=== PATIENT | female | born 1945 | race Two or more races ===

== ENCOUNTER 2020-07-25 11:18 | Inpatient (IN) | payer OTHER ==
[~2020-07-25] VITALS: Ht 165.1 cm; Wt 115.7 kg
[2020-07-25] MEDS ORDERED: LEVOXYL75 MCG (11:52)
[2020-07-25] MEDS ORDERED: PROBIOTIC1 EAC2 (11:53)
[2020-07-25] MEDS ORDERED: COZAAR50 MG (11:53)
[2020-07-25] MEDS ORDERED: AMLODIPINE-OLM1 EAC2 (11:53)
[2020-07-25] MEDS ORDERED: CENTRUM SILVER1 EAC2 (11:54)
== END 2020-09-01 12:11 | disposition home or self-care (01) | DRG 378 ==
LOC: ER 11:18 → SEC-K 17:48 → MEDI 17:48 → MEDJ 17:48 → MEDI 19:08 → MEDJ 19:08
PROVIDERS: ADMIT Internal Medicine; ATTEND Internal Medicine
PROC: BW21ZZZ Computerized Tomography (CT Scan) of Abdomen and Pelvis (ICD-10-PCS; principal; 2020-07-25)
PROC: 3E0336Z Introduction of Nutritional Substance into Peripheral Vein, Percutaneous Approach (ICD-10-PCS; 2020-07-25)
PROC: 05HC33Z Insertion of Infusion Device into Left Basilic Vein, Percutaneous Approach (ICD-10-PCS; 2020-07-26)
PROC: 3E0F7GC Introduction of Other Therapeutic Substance into Respiratory Tract, Via Natural or Artificial Opening (ICD-10-PCS; 2020-07-27)
PROC: BW21Y0Z Computerized Tomography (CT Scan) of Abdomen and Pelvis using Other Contrast, Unenhanced and Enhanced (ICD-10-PCS; 2020-07-29)
PROC: 0W9F30Z Drainage of Abdominal Wall with Drainage Device, Percutaneous Approach (ICD-10-PCS; 2020-08-01)
PROC: 8E0ZXY6 Isolation (ICD-10-PCS; 2020-08-03)
PROC: BW21ZZZ Computerized Tomography (CT Scan) of Abdomen and Pelvis (ICD-10-PCS; 2020-08-06)
PROC: BW21ZZZ Computerized Tomography (CT Scan) of Abdomen and Pelvis (ICD-10-PCS; 2020-08-08)
PROC: BW21ZZZ Computerized Tomography (CT Scan) of Abdomen and Pelvis (ICD-10-PCS; 2020-08-16)
PROC: BW21Y0Z Computerized Tomography (CT Scan) of Abdomen and Pelvis using Other Contrast, Unenhanced and Enhanced (ICD-10-PCS; 2020-08-16)
PROC: BW21ZZZ Computerized Tomography (CT Scan) of Abdomen and Pelvis (ICD-10-PCS; 2020-08-19)
PROC: BW21Y0Z Computerized Tomography (CT Scan) of Abdomen and Pelvis using Other Contrast, Unenhanced and Enhanced (ICD-10-PCS; 2020-08-19)
PROC: 0W9F30Z Drainage of Abdominal Wall with Drainage Device, Percutaneous Approach (ICD-10-PCS; 2020-08-24)
PROC: BW21Y0Z Computerized Tomography (CT Scan) of Abdomen and Pelvis using Other Contrast, Unenhanced and Enhanced (ICD-10-PCS; 2020-08-30)
DX: K57.21 Diverticulitis of large intestine with perforation and abscess with bleeding (principal); B37.89 Other sites of candidiasis; Z20.828 Contact with and (suspected) exposure to other viral communicable diseases; D50.0 Iron deficiency anemia secondary to blood loss (chronic); D51.0 Vitamin B12 deficiency anemia due to intrinsic factor deficiency; B96.29 Other Escherichia coli [E. coli] as the cause of diseases classified elsewhere; B95.2 Enterococcus as the cause of diseases classified elsewhere; B96.7 Clostridium perfringens [C. perfringens] as the cause of diseases classified elsewhere; B96.89 Other specified bacterial agents as the cause of diseases classified elsewhere; B96.1 Klebsiella pneumoniae [K. pneumoniae] as the cause of diseases classified elsewhere; B96.6 Bacteroides fragilis [B. fragilis] as the cause of diseases classified elsewhere

== ENCOUNTER 2020-10-17 06:24 | Day surgery (SDC) | payer OTHER ==
[~2020-10-17 06:24] MED LIST: AMLODIPINE-OLM1 EAC2; CENTRUM SILVER1 EAC2; COZAAR50 MG; LEVOXYL75 MCG; PROBIOTIC1 EAC2
== END 2020-10-17 11:10 | disposition home or self-care (01) ==
LOC: AMB-ENDOS 06:24
PROVIDERS: ATTEND Surgery
DX: K57.20 Diverticulitis of large intestine with perforation and abscess without bleeding (principal); K62.4 Stenosis of anus and rectum; Z20.828 Contact with and (suspected) exposure to other viral communicable diseases

== ENCOUNTER → 2020-12-27 08:00 | Outpatient (CLI) | payer OTHER ==
[~2020-12-27] VITALS: Ht 165.1 cm; Wt 98.9 kg
[~2020-12-27 08:00] MED LIST changes: +LEVOTHYROXINE75 MCG PO; +TOPROL XL25 M1 PO; +VANCOMYCIN HCL1 GM PO
== END | disposition home or self-care (01) ==
LOC: LAB 08:00 → SURH 01-03 07:00 → EDSTATUS 01-03 08:45
PROVIDERS: ATTEND Surgery
DX: U07.1 COVID-19 (principal); K57.20 Diverticulitis of large intestine with perforation and abscess without bleeding; R10.32 Left lower quadrant pain; K43.2 Incisional hernia without obstruction or gangrene; I10 Essential (primary) hypertension

== ENCOUNTER 2021-01-02 18:25 | Inpatient (IN) | payer OTHER ==
[~2021-01-02] VITALS: Ht 160 cm; Wt 113.4 kg
[~2021-01-02 18:25] MED LIST changes: -LEVOTHYROXINE75 MCG PO; -TOPROL XL25 M1 PO; -VANCOMYCIN HCL1 GM PO
--- NOTE | 2021-01-02 19:14 | NUR ---
SE RECIBE PTE ALERTA Y ORIENTADA X3 ACOMPNADA POR PADRON HIJO EL CUAL REFIERE QUE LA PTE TRAE MUCHIS MEDICAMENTOS EN L MANANA DE [place] DESPUES QUE LE NOTIFICARON QUE TENIA COVID -19 ,ES PTE DEL DR.NICOLAS SARBJIT RICHARD HACER INTERVENIDA QUIRURGICAMENTE ,LA PRESION ALTERILA ESTA BAJA ,PTE CON DEPRECION.
--- NOTE | 2021-01-02 19:49 | NUR ---
SE ORIENTA A PTE SOBRE PROCESO DE MAGDY DE MUESTRAS, ADMINISTRACION DE MEDICAMENTOS Y ESTUDIO A REALIZAR CT DE [place]. PTE SE ENCUENTRA ALERTA Y ORIENTADA POR 3 AL MOMENTO CON S/V ESTABLES. SE OBSERVA UN POCO ANSIOSA POR NOTICIA DE RESULTADO DE COVID POSITIVO (MUESTRA REALIZADA POR KEMAL LUEGO DE DE ADMINISTRACION DE VACUNA HACE UN[place]ERA). SE ORIENTA A PTE SOBRE PROTOCOLOS DE UNIDAD, SE MANTIENE LA MISMA BAJO OBSERVACION.
[2021-01-18] MEDS ORDERED: LEVOTHYROXINE75 MCG PO (08:16)
[2021-01-18] MEDS ORDERED: TOPROL XL25 M1 PO (08:16)
[2021-01-18] MEDS ORDERED: VANCOMYCIN HCL1 GM PO (08:16)
== END 2021-01-18 09:42 | disposition home or self-care (01) | DRG 914 ==
LOC: ER 18:25 → MEDI 23:55 → ICU-2 23:55 → SEC-K 01-09 13:09 → MEDI 01-09 15:24
PROVIDERS: ADMIT Internal Medicine; ATTEND Internal Medicine
PROC: 4A033R1 Measurement of Arterial Saturation, Peripheral, Percutaneous Approach (ICD-10-PCS; 2021-01-02)
PROC: 02HV33Z Insertion of Infusion Device into Superior Vena Cava, Percutaneous Approach (ICD-10-PCS; principal; 2021-01-04)
PROC: 3E043KZ Introduction of Other Diagnostic Substance into Central Vein, Percutaneous Approach (ICD-10-PCS; 2021-01-04)
PROC: 4A12X4Z Monitoring of Cardiac Electrical Activity, External Approach (ICD-10-PCS; 2021-01-04)
PROC: 0W9F30Z Drainage of Abdominal Wall with Drainage Device, Percutaneous Approach (ICD-10-PCS; 2021-01-09)
DX: T14.91XA Suicide attempt, initial encounter (principal); N17.9 Acute kidney failure, unspecified; K57.20 Diverticulitis of large intestine with perforation and abscess without bleeding; I95.2 Hypotension due to drugs; F41.8 Other specified anxiety disorders; F32.9 Major depressive disorder, single episode, unspecified; E66.01 Morbid (severe) obesity due to excess calories; D50.0 Iron deficiency anemia secondary to blood loss (chronic); E03.9 Hypothyroidism, unspecified; T46.5X2A Poisoning by other antihypertensive drugs, intentional self-harm, initial encounter; Y92.098 Other place in other non-institutional residence as the place of occurrence of the external cause; Z20.822 Contact with and (suspected) exposure to COVID-19; B96.20 Unspecified Escherichia coli [E. coli] as the cause of diseases classified elsewhere; E87.6 Hypokalemia

== ENCOUNTER 2021-03-13 09:44 | Emergency (ER) | payer OTHER ==
[~2021-03-13] VITALS: Ht 165.1 cm; Wt 97.5 kg
[~2021-03-13 09:44] MED LIST changes: +LEVOTHYROXINE75 MCG PO; +TOPROL XL25 M1 PO; +VANCOMYCIN HCL1 GM PO
[2021-03-13] MEDS ORDERED: NORFLEX100MG PO (14:14)
[2021-03-13] MEDS ORDERED: DICLOFENAC SODI50 MG PO (14:14)
== END 2021-03-13 14:28 | disposition home or self-care (01) ==
LOC: ER 09:44
DX: M54.5 Low back pain (principal); R53.81 Other malaise

== ENCOUNTER 2021-04-07 17:07 | Inpatient (IN) | payer OTHER ==
[~2021-04-07] VITALS: Ht 165.1 cm; Wt 90.7 kg
[~2021-04-07 17:07] MED LIST changes: +DICLOFENAC SODI50 MG PO; +NORFLEX100MG PO
[2021-04-07] MEDS ORDERED: METRONIDAZOLE500 MG (17:31)
[2021-04-07] MEDS ORDERED: ABATINEX680 MG (17:32)
[2021-04-07] MEDS ORDERED: CIPRO500 MG (17:32)
== END 2021-05-04 15:34 | disposition home or self-care (01) | DRG 330 ==
LOC: ER 17:07 → SURG 21:26 → MEDJ 21:26 → SEC-K 23:17 → SURG 23:20 → MEDJ 04-11 00:09
PROVIDERS: Surgery; ADMIT Internal Medicine; ATTEND Internal Medicine
PROC: 4A12X4Z Monitoring of Cardiac Electrical Activity, External Approach (ICD-10-PCS; 2021-04-07)
PROC: 02HV33Z Insertion of Infusion Device into Superior Vena Cava, Percutaneous Approach (ICD-10-PCS; 2021-04-08)
PROC: 0W9F30Z Drainage of Abdominal Wall with Drainage Device, Percutaneous Approach (ICD-10-PCS; 2021-04-10)
PROC: B24BZZZ Ultrasonography of Heart with Aorta (ICD-10-PCS; 2021-04-11)
PROC: 8E0ZXY6 Isolation (ICD-10-PCS; 2021-04-12)
PROC: 0D1L4Z4 Bypass Transverse Colon to Cutaneous, Percutaneous Endoscopic Approach (ICD-10-PCS; principal; 2021-04-18 17:45)
PROC: 30233N1 Transfusion of Nonautologous Red Blood Cells into Peripheral Vein, Percutaneous Approach (ICD-10-PCS; 2021-04-20)
DX: K57.20 Diverticulitis of large intestine with perforation and abscess without bleeding (principal); L02.211 Cutaneous abscess of abdominal wall; N32.1 Vesicointestinal fistula; Z16.12 Extended spectrum beta lactamase (ESBL) resistance; N17.8 Other acute kidney failure; E66.01 Morbid (severe) obesity due to excess calories; Z20.822 Contact with and (suspected) exposure to COVID-19; F41.8 Other specified anxiety disorders; F32.9 Major depressive disorder, single episode, unspecified; D50.0 Iron deficiency anemia secondary to blood loss (chronic); B96.20 Unspecified Escherichia coli [E. coli] as the cause of diseases classified elsewhere

== ENCOUNTER 2021-05-06 05:54 | Emergency (ER) | payer OTHER ==
[~2021-05-06] VITALS: Ht 152.4 cm; Wt 90.7 kg
[~2021-05-06 05:54] MED LIST changes: +ABATINEX680 MG; +CIPRO500 MG; +METRONIDAZOLE500 MG
== END 2021-05-06 13:46 | disposition home or self-care (01) ==
LOC: ER 05:54
DX: J06.9 Acute upper respiratory infection, unspecified (principal); D64.89 Other specified anemias; R06.02 Shortness of breath; Z03.818 Encounter for observation for suspected exposure to other biological agents ruled out

== ENCOUNTER 2021-05-22 07:21 | Emergency (ER) | payer OTHER ==
[~2021-05-22] VITALS: Ht 165.1 cm; Wt 91.6 kg
== END 2021-05-22 12:48 | disposition home or self-care (01) ==
LOC: ER 07:21
DX: K94.19 Other complications of enterostomy (principal); K91.89 Other postprocedural complications and disorders of digestive system

== ENCOUNTER → 2021-06-02 | Emergency (ER) | payer OTHER | END | disposition home or self-care (01) | LOC: ER 09:13 | DX: T81.89XA Other complications of procedures, not elsewhere classified, initial encounter (principal) ==

== ENCOUNTER 2021-09-22 08:55 | Outpatient (CLI) | payer OTHER | END 2021-09-22 09:05 | disposition home or self-care (01) | LOC: TOM 08:55 | PROVIDERS: ATTEND Surgery | DX: Q61.02 Congenital multiple renal cysts (principal); K57.90 Diverticulosis of intestine, part unspecified, without perforation or abscess without bleeding; K57.20 Diverticulitis of large intestine with perforation and abscess without bleeding; R10.32 Left lower quadrant pain; K43.2 Incisional hernia without obstruction or gangrene; K94.09 Other complications of colostomy ==

== ENCOUNTER 2021-09-28 18:18 | Emergency (ER) | payer OTHER ==
[~2021-09-28] VITALS: Ht 165.1 cm; Wt 118.8 kg
== END 2021-09-28 20:45 | disposition home or self-care (01) ==
LOC: ER 18:18
DX: S00.03XA Contusion of scalp, initial encounter (principal); W18.09XA Striking against other object with subsequent fall, initial encounter; Y93.89 Activity, other specified; Y92.488 Other paved roadways as the place of occurrence of the external cause; Y99.8 Other external cause status

== ENCOUNTER 2021-10-13 07:53 | Outpatient (CLI) | payer OTHER | END 2021-10-13 07:55 | disposition home or self-care (01) | LOC: LAB 07:53 | PROVIDERS: ATTEND Surgery | DX: K57.20 Diverticulitis of large intestine with perforation and abscess without bleeding (principal); R10.32 Left lower quadrant pain; K94.09 Other complications of colostomy ==

== ENCOUNTER 2021-10-18 10:15 | Inpatient (IN) | payer OTHER ==
[2021-10-25] MEDS ORDERED: ATORVASTATIN CA20 MG (14:40)
[2021-10-25] MEDS ORDERED: HYDROCHLOROTH12.5 MG (14:40)
[2021-11-01] MEDS ORDERED: INTESTINEX680 M1 PO (07:48)
[2021-11-01] MEDS ORDERED: PRILOSEC OTC20 MG PO (07:48)
[2021-11-01] MEDS ORDERED: ULTRACET PO (07:48)
[2021-11-01] MEDS ORDERED: HYOSCYAMINE0.125 M1 SL (12:13)
[2021-11-01] MEDS ORDERED: LORATADINE10 MG PO (12:13)
[2021-11-01] MEDS ORDERED: ALBUTEROL2.5 MG/3 M IH (12:14)
[2021-11-01] MEDS ORDERED: AMLODIPINE BESYL5 MG PO (12:14)
[2021-11-01] MEDS ORDERED: INTEGRA PLUS C1 EACH PO (12:14)
[2021-11-01] MEDS ORDERED: LIPITOR20 MG PO (12:16)
[2021-11-01] MEDS ORDERED: CARdura 4MG TABLET PO (12:17)
[2021-11-01] MEDS ORDERED: AVAPRO150 MG PO (12:17)
[2021-11-01] MEDS ORDERED: TOPROL XL25 M1 PO (12:18)
[2021-11-01] MEDS ORDERED: BENZONATATE100 MG PO (12:18)
[2021-11-01] MEDS ORDERED: HYDRODIURIL12.5 MG PO (12:18)
[2021-11-01] MEDS ORDERED: TUSSIN DM LIQU118 ML PO (12:19)
[2021-11-01] MEDS ORDERED: LEVOTHYROXINE75 MCG PO (12:20)
[2021-11-01] MEDS ORDERED: ABATINEX680 MG PO (12:20)
== END 2021-11-01 18:37 | disposition home or self-care (01) | DRG 330 ==
LOC: ADM 10:15 → EDSTATUS 10:15 → O/R 10-24 05:26 → SURH 10-24 07:00
PROVIDERS: Surgery; ADMIT Surgery; ATTEND Surgery
PROC: 0DBE4ZZ Excision of Large Intestine, Percutaneous Endoscopic Approach (ICD-10-PCS; 2021-10-24)
PROC: 0WQF4ZZ Repair Abdominal Wall, Percutaneous Endoscopic Approach (ICD-10-PCS; 2021-10-24)
PROC: 0T9880Z Drainage of Bilateral Ureters with Drainage Device, Via Natural or Artificial Opening Endoscopic (ICD-10-PCS; 2021-10-24)
PROC: 3E0F7SF Introduction of Other Gas into Respiratory Tract, Via Natural or Artificial Opening (ICD-10-PCS; 2021-10-24)
PROC: 0DTN4ZZ Resection of Sigmoid Colon, Percutaneous Endoscopic Approach (ICD-10-PCS; principal; 2021-10-24 07:00)
PROC: 0DBP4ZZ Excision of Rectum, Percutaneous Endoscopic Approach (ICD-10-PCS; 2021-10-24 07:00)
PROC: 4A12X4Z Monitoring of Cardiac Electrical Activity, External Approach (ICD-10-PCS; 2021-10-25)
DX: K57.20 Diverticulitis of large intestine with perforation and abscess without bleeding (principal); N32.1 Vesicointestinal fistula; K43.2 Incisional hernia without obstruction or gangrene; Z43.3 Encounter for attention to colostomy; N99.4 Postprocedural pelvic peritoneal adhesions; N73.6 Female pelvic peritoneal adhesions (postinfective); I12.9 Hypertensive chronic kidney disease with stage 1 through stage 4 chronic kidney disease, or unspecified chronic kidney disease; N18.30 Chronic kidney disease, stage 3 unspecified; E03.9 Hypothyroidism, unspecified; D50.0 Iron deficiency anemia secondary to blood loss (chronic); E66.9 Obesity, unspecified; Z68.37 Body mass index [BMI] 37.0-37.9, adult; R53.81 Other malaise

== ENCOUNTER 2021-11-02 12:44 | Inpatient (IN) | payer OTHER ==
[~2021-11-02] VITALS: Ht 160 cm; Wt 99.8 kg
[~2021-11-02 12:44] MED LIST changes: +ABATINEX680 MG PO; +ALBUTEROL2.5 MG/3 M IH; +AMLODIPINE BESYL5 MG PO; +ATORVASTATIN CA20 MG; +AVAPRO150 MG PO; +BENZONATATE100 MG PO; +CARdura 4MG TABLET PO; +HYDROCHLOROTH12.5 MG; +HYDRODIURIL12.5 MG PO; +HYOSCYAMINE0.125 M1 SL; +INTEGRA PLUS C1 EACH PO; +INTESTINEX680 M1 PO; +LIPITOR20 MG PO; +LORATADINE10 MG PO; +PRILOSEC OTC20 MG PO; +TUSSIN DM LIQU118 ML PO; +ULTRACET PO
[2021-11-06] MEDS ORDERED: CARDURA XL4 MG (10:51)
[2021-11-07] MEDS ORDERED: BENZONATATE100 MG PO (13:52)
[2021-11-07] MEDS ORDERED: XOPENEX0.63 MG/3 IH (13:52)
[2021-11-07] MEDS ORDERED: DOXYCYCLINE HY100 M2 PO (13:52)
[2021-11-07] MEDS ORDERED: AVAPRO150 MG PO (13:52)
[2021-11-07] MEDS ORDERED: CARDURA XL4 MG PO (13:52)
[2021-11-07] MEDS ORDERED: PRILOSEC OTC20 MG PO (13:52)
[2021-11-07] MEDS ORDERED: MEDROLPACK PO (13:52)
[2021-11-07] MEDS ORDERED: LORATADINE10 MG PO (13:52)
[2021-11-07] MEDS ORDERED: ABATINEX680 MG PO (13:52)
[2021-11-07] MEDS ORDERED: HYDRODIURIL12.5 MG PO (13:52)
[2021-11-07] MEDS ORDERED: LEVOTHYROXINE75 MCG PO (13:52)
[2021-11-07] MEDS ORDERED: MUCINEX600 MG PO (13:52)
[2021-11-07] MEDS ORDERED: BUDEO.25 IH (13:52)
[2021-11-07] MEDS ORDERED: AMLODIPINE BESYL5 MG PO (13:52)
== END 2021-11-07 19:28 | disposition home or self-care (01) | DRG 202 ==
LOC: ER 12:44 → MEDI 17:42 → SEC-K 17:42 → MEDJ 11-03 01:17 → MEDI 11-03 01:17
PROVIDERS: ADMIT Internal Medicine Geriatric Medicine; ATTEND Internal Medicine Geriatric Medicine
PROC: BW21Y0Z Computerized Tomography (CT Scan) of Abdomen and Pelvis using Other Contrast, Unenhanced and Enhanced (ICD-10-PCS; principal; 2021-11-02)
PROC: BW24ZZZ Computerized Tomography (CT Scan) of Chest and Abdomen (ICD-10-PCS; 2021-11-02)
PROC: 4A033R1 Measurement of Arterial Saturation, Peripheral, Percutaneous Approach (ICD-10-PCS; 2021-11-02)
PROC: 3E0F7GC Introduction of Other Therapeutic Substance into Respiratory Tract, Via Natural or Artificial Opening (ICD-10-PCS; 2021-11-02)
DX: J45.31 Mild persistent asthma with (acute) exacerbation (principal); A41.9 Sepsis, unspecified organism; N39.0 Urinary tract infection, site not specified; J20.9 Acute bronchitis, unspecified; R06.81 Apnea, not elsewhere classified; F41.8 Other specified anxiety disorders; K63.89 Other specified diseases of intestine; E66.8 Other obesity; I11.9 Hypertensive heart disease without heart failure; Z20.822 Contact with and (suspected) exposure to COVID-19

== ENCOUNTER 2022-02-22 11:00 | Outpatient (CLI) | payer OTHER ==
[~2022-02-22 11:00] MED LIST changes: +BUDEO.25 IH; +CARDURA XL4 MG; +CARDURA XL4 MG PO; +DOXYCYCLINE HY100 M2 PO; +MEDROLPACK PO; +MUCINEX600 MG PO; +XOPENEX0.63 MG/3 IH
== END 2022-02-22 11:04 | disposition home or self-care (01) ==
LOC: SONOGRAMA 11:00
PROVIDERS: ATTEND General Practice
DX: C81.01 Nodular lymphocyte predominant Hodgkin lymphoma, lymph nodes of head, face, and neck (principal)

== ENCOUNTER 2022-02-27 10:33 | Outpatient (CLI) | payer OTHER | END 2022-02-27 10:39 | disposition home or self-care (01) | LOC: LAB 10:33 | PROVIDERS: ATTEND Radiology Diagnostic Radiology | DX: C81.01 Nodular lymphocyte predominant Hodgkin lymphoma, lymph nodes of head, face, and neck (principal) ==

== ENCOUNTER 2022-03-05 07:33 | Outpatient (CLI) | payer OTHER | END 2022-03-05 07:44 | disposition home or self-care (01) | LOC: TOM 07:33 | DX: E04.1 Nontoxic single thyroid nodule (principal) | CPT/HCPCS: 70491; Q9965 ==

== ENCOUNTER 2022-05-10 11:01 | Outpatient (CLI) | payer OTHER | END 2022-05-10 11:17 | disposition home or self-care (01) | LOC: SONOGRAMA 11:01 | PROVIDERS: ATTEND Pathology Anatomic Pathology | DX: E04.1 Nontoxic single thyroid nodule (principal) ==

== ENCOUNTER 2022-08-01 12:16 | Emergency (ER) | payer OTHER ==
[~2022-08-01] VITALS: Ht 165.1 cm; Wt 113.4 kg
== END 2022-08-01 18:13 | disposition home or self-care (01) ==
LOC: ER 12:16
DX: S50.11XA Contusion of right forearm, initial encounter (principal); X58.XXXA Exposure to other specified factors, initial encounter; Y93.9 Activity, unspecified; Y92.89 Other specified places as the place of occurrence of the external cause; Y99.9 Unspecified external cause status; Z91.013 Allergy to seafood; I10 Essential (primary) hypertension; E03.9 Hypothyroidism, unspecified

== ENCOUNTER → 2023-02-07 06:23 | Outpatient (CLI) | payer OTHER ==
[~2023-02-07 06:23] MED LIST changes: +AMLODIPINE-OLM1 EAC3 PO; +CIPRO500 MG/5 M PO
== END | disposition home or self-care (01) ==
LOC: LAB 06:22
PROVIDERS: ATTEND General Practice
DX: D64.9 Anemia, unspecified (principal); I10 Essential (primary) hypertension; E78.9 Disorder of lipoprotein metabolism, unspecified; E03.8 Other specified hypothyroidism; N39.0 Urinary tract infection, site not specified

== ENCOUNTER 2023-02-08 07:46 | Emergency (ER) | payer OTHER ==
[~2023-02-08] VITALS: Ht 165.1 cm; Wt 118.8 kg
[2023-02-08] MEDS ORDERED: COZAAR100 MG (08:00)
[2023-02-08] MEDS ORDERED: NORVASC10 MG (08:00)
== END 2023-02-08 16:01 | disposition home or self-care (01) ==
LOC: ER 07:46
DX: R10.9 Unspecified abdominal pain (principal); I10 Essential (primary) hypertension; Z91.013 Allergy to seafood; K57.30 Diverticulosis of large intestine without perforation or abscess without bleeding; Z98.890 Other specified postprocedural states; K40.90 Unilateral inguinal hernia, without obstruction or gangrene, not specified as recurrent

== ENCOUNTER 2023-04-25 11:51 | Outpatient (CLI) | payer OTHER ==
[~2023-04-25 11:51] MED LIST changes: +COZAAR100 MG; +NORVASC10 MG
== END 2023-04-25 11:58 | disposition home or self-care (01) ==
LOC: SONOGRAMA 11:51
DX: M25.512 Pain in left shoulder (principal)

== ENCOUNTER 2023-07-04 09:23 | Inpatient (IN) | payer OTHER ==
[~2023-07-04] VITALS: Ht 165.1 cm; Wt 122.5 kg
[2023-07-12] MEDS ORDERED: ELIQUIS5 MG PO (16:31)
[2023-07-12] MEDS ORDERED: TOPROL XL50 M1 PO (16:32)
[2023-07-12] MEDS ORDERED: AMIODARONE HCL200 MG PO (16:32)
[2023-07-12] MEDS ORDERED: LASIX20 MG PO (16:33)
[2023-07-12] MEDS ORDERED: TUSNEL LIQUID178 ML PO (16:33)
== END 2023-07-12 23:26 | disposition home or self-care (01) | DRG 309 ==
LOC: ER 09:23 → ICU-2 20:57 → SEC-K 07-05 16:01 → MEDI 07-05 16:59 → SEC-K 07-05 18:10 → MEDI 07-06 09:15
PROVIDERS: Emergency Medicine; Internal Medicine; ADMIT Internal Medicine; ATTEND Internal Medicine
PROC: B246ZZZ Ultrasonography of Right and Left Heart (ICD-10-PCS; principal; 2023-07-04)
PROC: 02HV33Z Insertion of Infusion Device into Superior Vena Cava, Percutaneous Approach (ICD-10-PCS; 2023-07-05)
PROC: 4A12X4Z Monitoring of Cardiac Electrical Activity, External Approach (ICD-10-PCS; 2023-07-06)
DX: I48.19 Other persistent atrial fibrillation (principal); I13.0 Hypertensive heart and chronic kidney disease with heart failure and stage 1 through stage 4 chronic kidney disease, or unspecified chronic kidney disease; N17.8 Other acute kidney failure; N18.30 Chronic kidney disease, stage 3 unspecified; E03.8 Other specified hypothyroidism; E78.49 Other hyperlipidemia; E66.01 Morbid (severe) obesity due to excess calories; G47.33 Obstructive sleep apnea (adult) (pediatric)

== ENCOUNTER 2023-08-10 12:06 | Emergency (ER) | payer OTHER ==
[~2023-08-10] VITALS: Ht 165.1 cm; Wt 117.9 kg
[~2023-08-10 12:06] MED LIST changes: +AMIODARONE HCL200 MG PO; +ELIQUIS5 MG PO; +LASIX20 MG PO; +TOPROL XL50 M1 PO; +TUSNEL LIQUID178 ML PO
== END 2023-08-10 17:03 | disposition home or self-care (01) ==
LOC: ER 12:06
DX: R07.81 Pleurodynia (principal); I10 Essential (primary) hypertension; E03.8 Other specified hypothyroidism; Z91.013 Allergy to seafood

== ENCOUNTER 2023-08-31 13:34 | Emergency (ER) | payer OTHER ==
[~2023-08-31] VITALS: Ht 165.1 cm; Wt 90.7 kg
[2023-08-31 16:08] LABS: HEMOGLOBIN 12.9 g/dL (12.0-15.00); MEAN CELL VOLUME 83.7 fL (80.00-100.00); MEAN CORPUSCULAR HGB CONC 32.3 g/dl (32.0-36.0); PLATELET COUNT 263 K/uL (150-450); RED BLOOD COUNT 4.78 M/uL (4.00-6.00); RED CELL DISTRIBUTION WIDTH 16.8 % (11.5-14.5)
[2023-08-31] MEDS ORDERED: IPRATROPIU0.2 MG/1 M IH (18:09)
[2023-08-31] MEDS ORDERED: XOPENEX CO1.25 MG/0. IH (18:09)
[2023-08-31] MEDS ORDERED: ZITHROMAX500 MG PO (18:09)
[2023-08-31] MEDS ORDERED: DIABETIC TUSSI118 M3 PO (18:09)
[2023-08-31] MEDS ORDERED: MEDROLPACK PO (18:09)
[2023-08-31] MEDS ORDERED: PULMICORT1 MG/2 ML IH (18:11)
== END 2023-08-31 19:07 | disposition home or self-care (01) ==
LOC: ER 13:34
PROVIDERS: Nurse Practitioner Family
DX: J06.9 Acute upper respiratory infection, unspecified (principal); Z20.822 Contact with and (suspected) exposure to COVID-19; I10 Essential (primary) hypertension; Z91.013 Allergy to seafood
CPT/HCPCS: 36415; 71046; 94640; 96365; 99284; J2930; J3490

== ENCOUNTER 2023-10-13 08:25 | Emergency (ER) | payer OTHER ==
[~2023-10-13] VITALS: Ht 167.6 cm; Wt 113.4 kg
[~2023-10-13 08:25] MED LIST changes: +DIABETIC TUSSI118 M3 PO; +IPRATROPIU0.2 MG/1 M IH; +PULMICORT1 MG/2 ML IH; +XOPENEX CO1.25 MG/0. IH; +ZITHROMAX500 MG PO
== END 2023-10-13 11:08 | disposition home or self-care (01) ==
LOC: ER 08:25
DX: S93.492A Sprain of other ligament of left ankle, initial encounter (principal); W18.39XA Other fall on same level, initial encounter; Y93.89 Activity, other specified; Y92.89 Other specified places as the place of occurrence of the external cause; Z91.013 Allergy to seafood; I48.91 Unspecified atrial fibrillation; E03.9 Hypothyroidism, unspecified; I11.0 Hypertensive heart disease with heart failure; I50.9 Heart failure, unspecified; M77.32 Calcaneal spur, left foot
CPT/HCPCS: 29515; 73610; 73630; 96372; 99284; J1885

== ENCOUNTER 2023-10-28 11:43 | Outpatient (CLI) | payer OTHER ==
[2023-10-28 13:37] LABS: CREATININE SERUM 1.26 mg/dL (0.55-1.02)
== END 2023-10-28 11:45 | disposition home or self-care (01) ==
LOC: LAB 11:43
PROVIDERS: ATTEND Radiology Diagnostic Radiology
DX: E07.1 Dyshormogenetic goiter (principal)

== ENCOUNTER → 2023-10-30 | Outpatient (CLI) | payer OTHER | END | disposition home or self-care (01) | LOC: TOM 10-28 10:39 | PROVIDERS: ATTEND General Practice | DX: R59.0 Localized enlarged lymph nodes (principal); E07.1 Dyshormogenetic goiter | CPT/HCPCS: 71270; Q9965 ==